=== PATIENT | male | born 1950 | race Caucasian/White ===

== ENCOUNTER 2024-05-28 14:40 | Emergency (ER) | payer MEDICARE, BC, SELFPAY ==
--- NOTE | ~2024-05-28 | XR_ITS ---
EXAMINATION: XR hip BI 2V w AP pelvis DATE: 05/28/2024 15:39 INDICATION: Bilateral hip pain. TECHNIQUE: An anteroposterior view of the pelvis and 2 views of each hip were obtained. COMPARISON: None. FINDINGS: Bone alignment is normal. No fracture. There is severe right hip osteoarthritis and mild le ft hip osteoarthritis. There is severe lumbar spondylosis. IMPRESSION: 1. Severe right hip osteoarthritis and mild left hip osteoarthritis. Reviewed, dictated and finalized at location E.
--- NOTE | 2024-05-28 16:58 | ED.LOWEXIN ---
HPI - Extremity Injury (Lower) General Chief Complaint: Extremity Injury, Lower Stated Complaint: R hip pain Time Seen by Provider: 05/28/24 16:56 History of Present Illness HPI Narrative: 74-year-old male with history of chronic right hip pain presents to emergency department for right hip pain and left hip pain. Patient states the pain seems to be more near his groin bilaterally. Patient states in March he had a steroid injection of the right hip that was ordered by his PCP. He was advised to follow-up with orthopedist but is yet to follow-up. He is not reporting pain to his left hip for several weeks. Denies injury or trauma, fever, vomiting. States he has been taking hydrocodone without improvement. Related Data Allergies Allergy/AdvReac Type Severity Reaction Status Date / Time No Known Allergies Allergy Unverified 06/30/14 17:29 Review of Systems Review of Systems: All systems reviewed & are unremarkable except as noted in HPI and below Exam Narrative: GENERAL: Well-appearing, well-nourished, and in no acute distress. HEAD: Normocephalic, atraumatic. NECK: Supple. CHEST: Clear to auscultation. No respiratory distress. HEART: Regular rate and rhythm. No murmur heard. Normal peripheral pulses. EXTREMITIES: Tenderness to the proximal femur bilaterally in the groin without overlying erythema or edema, no rashes. Full active and passive range of motion of hips. No tenderness remainder of lower extremity. DP pulses 2+ bilaterally. Sensation intact. Hip flexion and extension, knee flexion and extension and dorsiflexion and plantar flexion 5/5 bilaterally. Sensation intact throughout. SKIN: Warm, dry, no rash. NEURO: No focal deficits. Alert and oriented x3 MDM - Extremity Injury (Lower) [facility] Narrative Medical decision making narrative: 74-year-old male with history of chronic right hip pain presents to emergency department right hip pain and now left hip pain for several weeks. No injury or trauma. He is neurovascularly intact. Exam is significant for the above. No evidence of septic arthritis, has full active and passive range of motion and full strength throughout , he is afebrile. He is ambulatory with a cane. 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 Imaging discussed with the patient. This is likely the cause of his pain. He is on hydrocodone by his PCP which is not been helping. Will provide a course of steroids for anti-inflammatory properties and have him follow up with orthopedist. Referral provided. Strict ED return precautions discussed. He is agreeable to the plan and verbalized understanding. Discharged in stable condition. Discharge Plan Discharge Clinical Impression: Bilateral hip pain Patient Disposition: Home, Self-Care Condition: Stable Instructions: Antibiotic Form, Hip Pain (ED) Additional Instructions: You were evaluated in the emergency department for hip pain. You were x-ray of her hip shows severe arthritis in your right hip and mild arthritis in her left hip. These are likely the cause of her symptoms. please take the hydrocodone as needed for breakthrough pain that was prescribed by her primary care provider in the steroid pack as directed. Please follow-up with orthopedist. Return to the emergency department if you develop a fever, redness or warmth to her joints, you are unable to move her hips, or other concerning symptoms. Prescriptions: New methylprednisolone [Medrol (Angel)] 4 mg tablets,dose pack See Rx Instructions PO .COMPLEX Qty: 21 0RF Rx Instructions: orally per package directions Follow-up/Referrals: Massimo,Levi Muro MD [Primary Care Provider] - Miguel Pete MD [Physician] - 1 Day
[2024-05-28 17:10] VITALS: BP 153/91; PULSE 63; RESP 16; TEMP 36.3; O2SAT 95
== END 2024-05-28 17:11 | disposition home or self-care (01) ==
PROVIDERS: Emergency Provider Physician Assistant; PCP Emergency Medicine
DX: M25.552 Pain in left hip (principal); M25.551 Pain in right hip; M16.0 Bilateral primary osteoarthritis of hip
CPT/HCPCS: 73521; 99284

== ENCOUNTER 2024-06-01 13:26 | Emergency (ER) | payer MEDICARE, BC, SELFPAY ==
[2024-06-01 13:31] VITALS: PULSE 64; RESP 16; TEMP 36.4; O2SAT 99
[2024-06-01 13:35] VITALS: BP 163/110
[2024-06-01 13:50] LABS: Add Urine Microscopic? YES; Appearance Urine Clear (Clear); Bacteria Urine None Seen /hpf; Bilirubin Urine Negative (Negative); Blood Urine Trace (Negative); Color Urine Yellow (Yellow); Glucose Urine UA Negative (Negative); Ketones Urine Negative (Negative); Leukocyte Esterase Ur Negative LEU/UL (Negative); Nitrate Urine Negative (Negative); Non Pathogenic Casts 0-2; Protein Urine 2+ mg/dL (Negative); RBC Urine 0-2 /hpf (0-2); Specific Grav Ur 1.006 (1.001-1.035); Squamous Epithelial Cell Urine None Seen /hpf (Few); Urobilinogen Urine 0.2 mg/dL (<2.0); WBC Urine 0-5 /hpf (0-3)
--- NOTE | 2024-06-01 14:12 | ED.GENADULT ---
HPI - General Adult General Chief complaint: Extremity Injury, Lower Stated complaint: increased urination, left hip pain Time Seen by Provider: 06/01/24 13:31 History of Present Illness HPI narrative: 74-year-old male presenting to the emergency department for evaluation for persistent bilateral hip pain. Patient states he was diagnosed with severe osteoarthritis and is scheduled to have follow-up with Orthopedics. Patient was post to have follow-up with primary care physician to get pain/steroid injections but they what do this until he has follow-up with orthopedics 1st. Patient has been taking [place] for pain control. Patient did attempt a p.o. course of steroids but these did not help. Related Data Home Medications Medication Instructions Recorded Confirmed albuterol sulfate 90 mcg/actuation 2 inh inhalation Q4-6H PRN 06/01/24 breath activated powder inhaler,sensor allopurinol 100 mg tablet 100 mg PO DAILY 06/01/24 alprazolam 1 mg tablet 1 mg PO DAILY 06/01/24 amlodipine 5 mg tablet 5 mg PO DAILY 06/01/24 amoxicillin 500 mg capsule 500 mg PO Q12H 06/01/24 calcitriol 0.25 mcg capsule 0.25 mcg PO DAILY 06/01/24 calcium carbonate (Antacid 200 mg PO BID 06/01/24 (calcium carbonate)) ergocalciferol (vitamin D2) 50,000 unit PO 06/01/24 unit tablet fluticasone propionate 50 2 spray intranasal DAILY 06/01/24 mcg/actuation nasal spray,suspension (Allergy Relief (fluticasone)) hydrocodone 5 mg-acetaminophen 325 1 tablet PO QHS PRN 06/01/24 mg tablet lamotrigine 25 mg tablet 25 mg PO DAILY 06/01/24 nadolol 20 mg tablet 20 mg PO DAILY 06/01/24 pantoprazole 40 mg tablet,delayed 40 mg PO QAM 06/01/24 release sertraline 25 mg tablet 25 mg PO DAILY 06/01/24 sevelamer HCl 400 mg tablet 400 mg PO TID 06/01/24 tamsulosin 0.4 mg capsule 0.4 mg PO DAILY 06/01/24 Allergies Allergy/AdvReac Type Severity Reaction Status Date / Time [id number] Reductase Allergy Unknown Unknown Verified 06/01/24 10:48 Inhibitor Review of Systems Review of Systems: All systems reviewed & are unremarkable except as noted in HPI and below Exam Narrative: APPEARANCE: Well appearing, no pain, no distress, well-nourished. HEAD: normocephalic, atraumatic. EYES: PERRLA/EOMI, conjunctivae clear. NOSE: Normal no drainage NECK: Supple. No adenopathy, no masses. RESPIRATORY: Airway patent, respirations nonlabored. Clear to auscultation bilaterally, no rales, rhonchi, wheezing. CARDIOVASCULAR: Regular rate and rhythm without murmurs rubs or gallops. ABDOMINAL: Soft, nontender, nondistended, normal bowel sounds MUSCULOSKELETAL: Bilateral posterior hip tenderness to palpation NEURO: Alert. Cranial nerves II through XII intact. Grossly intact Course Course Emergency Course: Patient was encouraged to have close follow-up with Orthopedics. Vital Signs Vital signs: Vital Signs Temperature 97.6 F 06/01/24 13:31 Pulse Rate 64 06/01/24 13:31 Respiratory Rate 16 06/01/24 13:31 Pulse Oximetry 99 06/01/24 13:31 Temperature 98.0 F 06/01/24 14:40 Pulse Rate 64 06/01/24 14:40 Respiratory Rate 18 06/01/24 14:40 Blood Pressure 147/99 H 06/01/24 14:40 Pulse Oximetry 97 06/01/24 14:40 Medical Decision Making MDM Narrative Medical decision making narrative: [age] old male present to the emergency department for evaluation acute on chronic hip pain. Patient denies any new falls or injuries since his last imaging. Patient is requesting medications for pain control. Patient declined repeating of the steroids. Patient was provided additional narcotic pain medication for pain control. Differential Diagnosis Differential Diagnosis: Sciatica, osteoarthritis, hip pain, hip strain Vital Signs Vital Signs: Vital Signs Temperature 97.6 F 06/01/24 13:31 Pulse Rate 64 06/01/24 13:31 Respiratory Rate 16 06/01/24 13:31 Pulse Oximetry 99 06/01/24 13:31
[2024-06-01 14:40] VITALS: BP 147/99; PULSE 64; RESP 18; TEMP 36.7; O2SAT 97
== END 2024-06-01 14:40 | disposition home or self-care (01) ==
PROVIDERS: Emergency Provider Emergency Medicine; PCP Emergency Medicine
DX: M25.552 Pain in left hip (principal); M25.551 Pain in right hip; M19.90 Unspecified osteoarthritis, unspecified site
CPT/HCPCS: 81001; 99283